=== PATIENT | female | born 1980 | race Caucasian/White ===

== ENCOUNTER 2018-02-09 14:03 | Emergency (ER) | payer OTHER ==
[~2018-02-09] VITALS: Ht 165.1 cm; Wt 62.6 kg
[~2018-02-09 14:03] MED LIST: COLACE100 MG PO; IBUPROFEN800 MG PO; INTESTINEX1 CAP PO; MILLIPRED DP5 M1 PO; MIRALAX12 EA PO; TRAMADOL HCL50 MG PO; ZEBUTAL CAPSULE1 CAP PO; ZITHROMAX TRI-500 MG PO
== END 2018-02-09 18:34 | disposition left against medical advice (07) ==
LOC: ER 14:03
DX: M62.830 Muscle spasm of back (principal); R07.89 Other chest pain; F06.4 Anxiety disorder due to known physiological condition

== ENCOUNTER 2018-09-12 07:19 | Emergency (ER) | payer OTHER ==
[~2018-09-12] VITALS: Ht 165.1 cm; Wt 73.9 kg
[2018-09-12] MEDS ORDERED: CLARITIN10 MG PO (07:31)
[2018-09-12] MEDS ORDERED: RISPERDAL0.25 MG PO (07:32)
[2018-09-12] MEDS ORDERED: KETO10TA2 PO (11:00)
[2018-09-12] MEDS ORDERED: NORFLEX100MG PO (11:00)
== END 2018-09-12 11:05 | disposition home or self-care (01) ==
LOC: ER 07:19
DX: M54.2 Cervicalgia (principal)

== ENCOUNTER 2018-12-17 23:32 | Emergency (ER) | payer OTHER ==
[~2018-12-17] VITALS: Ht 165.1 cm; Wt 72.6 kg
[~2018-12-17 23:32] MED LIST changes: +CLARITIN10 MG PO; +KETO10TA2 PO; +NORFLEX100MG PO; +RISPERDAL0.25 MG PO
[2018-12-18] MEDS ORDERED: ATARAX25 MG (00:08)
[2018-12-18] MEDS ORDERED: LAMICTAL25 MG (00:08)
[2018-12-18] MEDS ORDERED: DUI500 PO (01:17)
== END 2018-12-18 01:36 | disposition home or self-care (01) ==
LOC: ER 23:32
DX: S91.322A Laceration with foreign body, left foot, initial encounter (principal); W25.XXXA Contact with sharp glass, initial encounter; Y93.89 Activity, other specified; Y92.098 Other place in other non-institutional residence as the place of occurrence of the external cause; Y99.8 Other external cause status

== ENCOUNTER 2020-04-08 10:02 | Emergency (ER) | payer OTHER ==
[~2020-04-08] VITALS: Ht 165.1 cm; Wt 74.4 kg
[~2020-04-08 10:02] MED LIST changes: +ATARAX25 MG; +DUI500 PO; +LAMICTAL25 MG
== END 2020-04-08 16:11 | disposition home or self-care (01) ==
LOC: ER 10:02 → EDBD 10:17 → ER 16:11
DX: N93.8 Other specified abnormal uterine and vaginal bleeding (principal); D25.1 Intramural leiomyoma of uterus; D25.2 Subserosal leiomyoma of uterus

== ENCOUNTER 2020-04-14 14:40 | Emergency (ER) | payer OTHER ==
[~2020-04-14] VITALS: Ht 165.1 cm; Wt 77.1 kg
[2020-04-14] MEDS ORDERED: VRAYLAR6 MG (15:28)
[2020-04-14] MEDS ORDERED: LAMICTAL25 M1 PO (15:28)
== END 2020-04-14 20:51 | disposition home or self-care (01) ==
LOC: ER 14:40
DX: R51 Headache (principal)

== ENCOUNTER 2021-01-05 08:57 | Emergency (ER) | payer OTHER ==
[~2021-01-05] VITALS: Ht 165.1 cm; Wt 81.6 kg
[~2021-01-05 08:57] MED LIST changes: +LAMICTAL25 M1 PO; +VRAYLAR6 MG
[2021-01-05] MEDS ORDERED: CLARITIN10 M1 (09:24)
== END 2021-01-05 14:30 | disposition home or self-care (01) ==
LOC: ER 08:57
DX: R30.0 Dysuria (principal); N39.0 Urinary tract infection, site not specified; Z11.52 Encounter for screening for COVID-19

== ENCOUNTER 2021-03-09 16:01 | Emergency (ER) | payer OTHER ==
[~2021-03-09] VITALS: Ht 165.1 cm; Wt 84.8 kg
[~2021-03-09 16:01] MED LIST changes: +CLARITIN10 M1
[2021-03-09] MEDS ORDERED: KETO10TA2 PO (21:44)
== END 2021-03-09 21:58 | disposition home or self-care (01) ==
LOC: ER 16:01
DX: N83.292 Other ovarian cyst, left side (principal); D25.9 Leiomyoma of uterus, unspecified; R10.2 Pelvic and perineal pain

== ENCOUNTER 2021-05-08 06:25 | Emergency (ER) | payer OTHER ==
[~2021-05-08] VITALS: Ht 165.1 cm; Wt 81.6 kg
[2021-05-08] MEDS ORDERED: CEPHALEXIN500 M1 PO (07:38)
[2021-05-08] MEDS ORDERED: KETO10TA2 PO (07:38)
== END 2021-05-08 08:00 ==
LOC: ER 06:25
DX: H60.92 Unspecified otitis externa, left ear (principal)

== ENCOUNTER 2021-05-17 08:22 | Emergency (ER) | payer OTHER ==
[~2021-05-17] VITALS: Ht 165.1 cm; Wt 83.9 kg
[~2021-05-17 08:22] MED LIST changes: +CEPHALEXIN500 M1 PO
[2021-05-17] MEDS ORDERED: CHILDREN'S ASPI81 MG PO (08:48)
== END 2021-05-17 10:45 | disposition home or self-care (01) ==
LOC: ER 08:22
DX: H92.02 Otalgia, left ear (principal)

== ENCOUNTER 2021-05-25 05:09 | Emergency (ER) | payer OTHER ==
[~2021-05-25] VITALS: Ht 165.1 cm; Wt 81.6 kg
[~2021-05-25 05:09] MED LIST changes: +CHILDREN'S ASPI81 MG PO
[2021-05-25] MEDS ORDERED: KETO10TA2 PO (07:21)
[2021-05-25] MEDS ORDERED: CORTISPORIN EAR10 M1 OPHT (07:21)
[2021-05-25] MEDS ORDERED: AMOX-CLAV 875-1 EACH PO (07:21)
== END 2021-05-25 07:40 ==
LOC: ER 05:09
DX: H60.8X2 Other otitis externa, left ear (principal)

== ENCOUNTER 2021-06-15 00:19 | Emergency (ER) | payer OTHER ==
[~2021-06-15] VITALS: Ht 165.1 cm; Wt 77.1 kg
[~2021-06-15 00:19] MED LIST changes: +AMOX-CLAV 875-1 EACH PO; +CORTISPORIN EAR10 M1 OPHT
[2021-06-15] MEDS ORDERED: ANUSOL-HC25 MG RECTAL (03:24)
[2021-06-15] MEDS ORDERED: ANUSOL-HC30 G2 TOP (03:24)
[2021-06-15] MEDS ORDERED: KETO10TA2 PO (03:25)
== END 2021-06-15 04:05 | disposition home or self-care (01) ==
LOC: ER 00:19 → EDBD 00:48 → ER 00:48
DX: K64.8 Other hemorrhoids (principal); M62.838 Other muscle spasm

== ENCOUNTER 2022-01-14 23:41 | Emergency (ER) | payer OTHER ==
[~2022-01-14] VITALS: Ht 165.1 cm; Wt 76.2 kg
[~2022-01-14 23:41] MED LIST changes: +ANUSOL-HC25 MG RECTAL; +ANUSOL-HC30 G2 TOP
[2022-01-15] MEDS ORDERED: NAPROXEN SODIU550 MG PO (00:52)
[2022-01-15] MEDS ORDERED: AMOX-CLAV 875-1 EACH PO (00:52)
== END 2022-01-15 01:21 | disposition home or self-care (01) ==
LOC: ER 23:41
DX: K08.89 Other specified disorders of teeth and supporting structures (principal); Z91.014 Allergy to mammalian meats; Z91.018 Allergy to other foods

== ENCOUNTER 2022-02-18 08:32 | Outpatient (CLI) | payer OTHER ==
[~2022-02-18 08:32] MED LIST changes: +NAPROXEN SODIU550 MG PO
== END 2022-02-18 08:41 | disposition home or self-care (01) ==
LOC: SONOGRAMA 08:32
DX: R22.41 Localized swelling, mass and lump, right lower limb (principal)

== ENCOUNTER → 2022-03-23 | Emergency (ER) | payer OTHER ==
[~2022-03-23] VITALS: Ht 165.1 cm; Wt 80.7 kg
== END | disposition home or self-care (01) ==
LOC: ER 19:20
DX: B34.9 Viral infection, unspecified (principal); Z20.822 Contact with and (suspected) exposure to COVID-19; Z91.014 Allergy to mammalian meats; Z91.018 Allergy to other foods

== ENCOUNTER → 2022-03-24 | Emergency (ER) | payer OTHER | END | disposition home or self-care (01) | LOC: ER 14:47 | DX: B34.9 Viral infection, unspecified (principal) ==

== ENCOUNTER 2023-06-20 19:06 | Emergency (ER) | payer OTHER ==
[~2023-06-20] VITALS: Ht 165.1 cm; Wt 81.6 kg
== END 2023-06-21 01:34 | disposition home or self-care (01) ==
LOC: ER 19:06
DX: G44.209 Tension-type headache, unspecified, not intractable (principal); Z91.018 Allergy to other foods

== ENCOUNTER 2023-09-16 07:54 | Emergency (ER) | payer OTHER ==
[~2023-09-16] VITALS: Ht 165.1 cm; Wt 84.4 kg
== END 2023-09-16 12:39 | disposition home or self-care (01) ==
LOC: ER 07:54
DX: M79.671 Pain in right foot (principal)

== ENCOUNTER 2024-01-06 21:17 | Emergency (ER) | payer OTHER ==
[~2024-01-06] VITALS: Ht 170.2 cm; Wt 108.9 kg
[2024-01-06] MEDS ORDERED: KETOROLAC TROMETHAMINE 30 MG VIAL IM STA (23:01)
== END 2024-01-06 23:16 | disposition home or self-care (01) ==
LOC: ER 21:17
DX: J06.9 Acute upper respiratory infection, unspecified (principal); Z20.822 Contact with and (suspected) exposure to COVID-19; Z91.014 Allergy to mammalian meats; Z91.018 Allergy to other foods

== ENCOUNTER 2024-09-24 14:39 | Emergency (ER) | payer OTHER ==
[~2024-09-24] VITALS: Ht 165.1 cm; Wt 80.7 kg
== END 2024-09-24 17:58 | disposition home or self-care (01) ==
LOC: ER 14:41
DX: S90.829A Blister (nonthermal), unspecified foot, initial encounter (principal); T14.8XXA Other injury of unspecified body region, initial encounter; X58.XXXA Exposure to other specified factors, initial encounter; Y93.89 Activity, other specified; Y92.89 Other specified places as the place of occurrence of the external cause; Y99.8 Other external cause status; Z91.018 Allergy to other foods

== ENCOUNTER 2024-09-27 20:02 | Emergency (ER) | payer OTHER ==
[~2024-09-27] VITALS: Ht 165.1 cm; Wt 62.6 kg
[2024-09-27] MEDS ORDERED: 0.9 % SODIUM CHLORIDE 500 ML IV ONE (22:45)
[2024-09-27 23:17] LABS: HEMATOCRIT 35.7 % (36.0-45.00); HEMOGLOBIN 12.1 g/dL (12.0-15.00); MEAN CELL VOLUME 83.5 fL (80.00-100.00); MEAN CORPUSCULAR HEMOGLOBIN 28.2 pg (27.00-32.0); MEAN CORPUSCULAR HGB CONC 33.8 g/dl (32.0-36.0); PLATELET COUNT 360 K/uL (150-450); RED BLOOD COUNT 4.27 M/uL (4.00-6.00); RED CELL DISTRIBUTION WIDTH 15.9 % (11.5-14.5)
[2024-09-27 23:36] LABS: ALBUMIN 3.6 gm/dL (3.4-5.0); BILIRUBIN TOTAL 0.12 mg/dL (0.3-1.2); CALCIUM 8.5 mg/dL (8.5-10.1); CREATININE SERUM 0.85 mg/dL (0.55-1.02); GFR 72.32; GLOBULINA 4.2 G/DL (2.4-3.5); POTASSIUM 3.84 mEq/L (3.5-5.1); TOTAL PROTEIN 7.8 gm/dL (6.4-8.2)
== END 2024-09-28 01:29 | disposition home or self-care (01) ==
LOC: ER 20:04
PROVIDERS: Preventive Medicine Public Health & General Preventive Medicine
DX: K52.9 Noninfective gastroenteritis and colitis, unspecified (principal); Z91.018 Allergy to other foods

== ENCOUNTER 2024-10-05 12:19 | Emergency (ER) | payer OTHER ==
[~2024-10-05] VITALS: Ht 165.1 cm; Wt 77.6 kg
[2024-10-05] MEDS ORDERED: ANALPRAM HC 2.530 GM RECTAL (16:07)
== END 2024-10-05 16:24 | disposition home or self-care (01) ==
LOC: ER 12:21
DX: K64.8 Other hemorrhoids (principal); Z91.018 Allergy to other foods

== ENCOUNTER 2024-12-20 05:12 | Emergency (ER) | payer OTHER ==
[~2024-12-20] VITALS: Ht 167.6 cm; Wt 77.1 kg
[~2024-12-20 05:12] MED LIST changes: +ANALPRAM HC 2.530 GM RECTAL
[2024-12-20 10:48] LABS: HEMATOCRIT 36.6 % (36.0-45.00); MEAN CELL VOLUME 84.2 fL (80.00-100.00); MEAN CORPUSCULAR HEMOGLOBIN 27.7 pg (27.00-32.0); MEAN CORPUSCULAR HGB CONC 32.9 g/dl (32.0-36.0); PLATELET COUNT 443 K/uL (150-450); RED BLOOD COUNT 4.34 M/uL (4.00-6.00); RED CELL DISTRIBUTION WIDTH 17.7 % (11.5-14.5)
[2024-12-20 11:03] LABS: INR 0.95; PARTIAL THROMBOPLASTIN TIME 25.6 SECONDS (22.0-34.0); PROTHROMBIN TIME 10.4 SECONDS (9.0-11.5)
[2024-12-20 11:04] LABS: PH,URINE 5.5 (5.0-8.0); URINE APPEARANCE Cloudy; URINE BILIRRUBIN Negative (NEGATIVE); URINE BLOOD Negative; URINE COLOR Dark Yellow; URINE GLUCOSE Negative (NEGATIVE); URINE KETONE Negative (NEGATIVE); URINE LEUKOCYTE Negative; URINE NITRATE Negative; URINE PROTEIN Trace (NEGATIVE); URINE UROBILINOGEN 0.2 E.U./dl
[2024-12-20 11:05] LABS: URINE BACTERIA 873.9 uL (0.0-1933); URINE EPITHELIAL CELLS 33.5 uL (0.0-38.8); URINE RBC 54.5 uL (0.0-20.8); URINE WBC 5.3 uL (0.0-23.2)
[2024-12-20 11:19] LABS: COCAINE NEGATIVE (NEGATIVE); METHADONE NEGATIVE (NEGATIVE); OPIATES NEGATIVE (NEGATIVE); THC ( Cannabinoids) POSITIVE (NEGATIVE)
[2024-12-20 11:24] LABS: ALBUMIN 3.6 gm/dL (3.4-5.0); ALKALINE PHOSPHATASE 90 U/L (50-136); ALT/SGPT 20 U/L (12-78); ANION GAP 7 (10.0-20.0); AST/SGOT 18 U/L (15-37); BILIRUBIN TOTAL 0.16 mg/dL (0.3-1.2); BLOOD UREA NITROGEN 12 mg/dL (7-18); BUN CREA RATIO 13 (7.0-25.0); CALCIUM 8.8 mg/dL (8.5-10.1); CARBON DIOXIDE 32 mEq/L (21-32); CHLORIDE 108 mmol/L (98-107); CREATININE SERUM 0.93 mg/dL (0.55-1.02); GLOBULINA 4.2 G/DL (2.4-3.5); GLUCOSE FASTING 106 mg/dL (65-100); OSMOLALITY SERUM 285 MOSM/KG (275-295); POTASSIUM 3.97 mEq/L (3.5-5.1); SODIUM 143 mmol/L (136-145); TOTAL PROTEIN 7.8 gm/dL (6.4-8.2)
[2024-12-20 11:25] LABS: HCG QUANTITATIVE < 1 mUI/mL (1-3)
[2024-12-20 12:07] LABS: URINE CRYSTALS MANY /HPF
== END 2024-12-20 12:59 | disposition home or self-care (01) ==
LOC: ER 05:14
PROVIDERS: General Practice
DX: R53.81 Other malaise (principal); R25.2 Cramp and spasm; Z91.018 Allergy to other foods